=== PATIENT | male | born 1945 ===

== ENCOUNTER 2022-02-12 15:49 | Emergency (ER) | payer OTHER ==
[~2022-02-12] VITALS: Ht 162.6 cm; Wt 65.8 kg
[~2022-02-12 15:49] MED LIST: GLIMEPIRIDE4 MG; LOPRESSOR HCT 51 TAB; NEURONTIN800 MG; ZESTORETIC 20/21 TAB
== END 2022-02-12 21:50 | disposition home or self-care (01) ==
LOC: ER 15:49
DX: S81.021A Laceration with foreign body, right knee, initial encounter (principal); W25.XXXA Contact with sharp glass, initial encounter; Y93.89 Activity, other specified; Y92.010 Kitchen of single-family (private) house as the place of occurrence of the external cause

== ENCOUNTER 2022-09-02 07:09 | Outpatient (CLI) | payer OTHER | END 2022-09-02 07:10 | disposition home or self-care (01) | LOC: NUCLEAR 07:09 | DX: C61 Malignant neoplasm of prostate (principal) | CPT/HCPCS: 78306; A9503 ==

== ENCOUNTER 2023-06-27 14:19 | Emergency (ER) | payer OTHER ==
[~2023-06-27] VITALS: Ht 162.6 cm; Wt 63.5 kg
[2023-06-27] MEDS ORDERED: MOBIC7.5 MG PO (21:02)
[2023-06-27] MEDS ORDERED: PEPCID AC20 MG PO (21:02)
[2023-06-27] MEDS ORDERED: ZOFRAN8 MG PO (21:02)
== END 2023-06-27 21:41 | disposition home or self-care (01) ==
LOC: ER 14:19
DX: K52.9 Noninfective gastroenteritis and colitis, unspecified (principal); R07.89 Other chest pain; I11.9 Hypertensive heart disease without heart failure; M19.90 Unspecified osteoarthritis, unspecified site; Z85.46 Personal history of malignant neoplasm of prostate
CPT/HCPCS: 36415; 71045; 96365; 96366; 99284; J2405; J3490; J7042

== ENCOUNTER 2024-02-24 04:46 | Inpatient (IN) | payer OTHER ==
[~2024-02-24] VITALS: Ht 162.6 cm; Wt 65.8 kg
[~2024-02-24 04:46] MED LIST changes: +MOBIC7.5 MG PO; +PEPCID AC20 MG PO; +ZOFRAN8 MG PO
[2024-02-24] MEDS ORDERED: 0.9 % SODIUM CHLORIDE 1,000 ML IV STA (07:45)
[2024-02-24] MEDS ORDERED: ONDANSETRON HCL 2 MG/ML VIAL IV STA (07:46)
[2024-02-24] MEDS ORDERED: BISMUTH SUBSALICYLATE 524 MG/30 ML BLIST.PACK PO STA (07:46)
[2024-02-24] MEDS ORDERED: FAMOTIDINE/PF 20 MG/2 ML VIAL IV PUSH STA (07:46)
[2024-02-24] MEDS ORDERED: LOPERAMIDE HCL 2 MG CAPSULE PO STA (07:47)
[2024-02-24 08:30] LABS: HEMATOCRIT 28.2 % (39.0-48.0); MEAN CELL VOLUME 84.1 fL (80.0-100.00); MEAN CORPUSCULAR HGB CONC 32.8 g/dl (32.0-36.0); PLATELET COUNT 232 K/uL (150-450); RED BLOOD COUNT 3.36 M/uL (4.00-6.00); RED CELL DISTRIBUTION WIDTH 16.6 % (11.5-14.5)
[2024-02-24 08:40] LABS: HEMOGLOBIN 9.2 g/dL (13-16.00); MEAN CORPUSCULAR HEMOGLOBIN 27.3 pg (27.00-32.0)
[2024-02-24 08:53] LABS: ALBUMIN 3.6 gm/dL (3.4-5.0); BILIRUBIN TOTAL 0.52 mg/dL (0.3-1.2); CALCIUM 8.7 mg/dL (8.5-10.1); CREATININE SERUM 2.58 mg/dL (0.70-1.30); GFR 24.27; GLOBULINA 3.5 G/DL (2.4-3.5); POTASSIUM 5.75 mEq/L (3.5-5.1); TOTAL PROTEIN 7.1 gm/dL (6.4-8.2)
[2024-02-24] MEDS ORDERED: KETOROLAC TROMETHAMINE 30 MG VIAL IV ONE (15:30)
[2024-02-24] MEDS ORDERED: ACETAMINOPHEN 500 MG GEL..CAP PO PRN (17:15)
[2024-02-24] MEDS ORDERED: ONDANSETRON HCL 4 MG in 0.9 % SODIUM CHLORIDE 50 ML IV PRN (17:15)
[2024-02-24] MEDS ORDERED: 0.9 % SODIUM CHLORIDE 1,000 ML IV SCH (17:15)
[2024-02-24] MEDS ORDERED: DEXTROSE 50 % IN WATER 0.5 G/ML DISP.SYRIN IV PRN (17:30)
[2024-02-24] MEDS ORDERED: INSULIN LISPRO 1,000 UNIT/10 ML UNITS SUBCUTANEO PRN (17:30)
[2024-02-24] MEDS ORDERED: PIPERACILLIN/TAZOBACTAM SODIUM 2.25 GM in DEXTROSE 5 % IN WATER 50 ML IV SCH (18:00)
[2024-02-24 18:07] LABS: INR 1.11; PARTIAL THROMBOPLASTIN TIME 28.6 SECONDS (22.0-34.0); PROTHROMBIN TIME 11.6 SECONDS (9.0-11.5)
[2024-02-24 18:07] LABS: ABG PH 7.314 (7.35-7.45); ABG pCO2 33.1 mmHg (35-45); BASE EXCESS -8.6 mmol/l; BICARBONATE 16.4 mmol/l (23-25); SaO2 97.3 %; Tco2 17.4 mmol/l
[2024-02-24 18:08] LABS: allen test SATISFACTORY; o2 21 %; puncture site RADIAL RIGHT
[2024-02-24 18:09] LABS: CALCIUM 8.3 mg/dL (8.5-10.1); CREATININE SERUM 2.51 mg/dL (0.70-1.30); GFR 25.05; PHOSPHOROUS 4.7 mg/dL (2.5-4.9); POTASSIUM 5.5 mEq/L (3.5-5.1); URINE APPEARANCE Clear; URINE BILIRRUBIN Negative (NEGATIVE); URINE BLOOD Negative; URINE COLOR Yellow; URINE GLUCOSE Negative (NEGATIVE); URINE LEUKOCYTE Trace; URINE NITRATE Negative; URINE PROTEIN Trace (NEGATIVE); URINE UROBILINOGEN 0.2 E.U./dl
[2024-02-24 18:11] LABS: URINE BACTERIA 60.4 uL (0.0-1933); URINE EPITHELIAL CELLS 12.9 uL (0.0-38.8); URINE RBC 6.3 uL (0.0-20.8); URINE WBC 10.6 uL (0.0-23.2)
[2024-02-24 18:37] LABS: C-REACTIVE PROTEIN 6.27 MG/DL (0.00-0.29)
[2024-02-24] MEDS ORDERED: CITRIC ACID/SODIUM CITRATE 30 ML BLIST.PACK PO SCH (21:45)
[2024-02-25 08:24] LABS: BILIRUBIN TOTAL 0.43 mg/dL (0.3-1.2); CREATININE SERUM 2.13 mg/dL (0.70-1.30); GFR 30.28; GLOBULINA 2.9 G/DL (2.4-3.5); POTASSIUM 4.97 mEq/L (3.5-5.1); TOTAL PROTEIN 5.9 gm/dL (6.4-8.2); TSH 0.767 uIU/mL (0.358-3.74)
[2024-02-25] MEDS ORDERED: PANTOPRAZOLE SODIUM 40 MG/VIAL VIAL IV SCH (09:00)
[2024-02-25] MEDS ORDERED: ATORVASTATIN CALCIUM 40 MG TABLET PO SCH (09:00)
[2024-02-25] MEDS ORDERED: SODIUM POLYSTYRENE SULFONATE 15 G/4 TSP TSP PO SCH (09:00)
[2024-02-25] MEDS ORDERED: ENOXAPARIN SODIUM 30 MG/0.3 ML SYRINGE SUBCUTANEO SCH (09:00)
[2024-02-25] MEDS ORDERED: IRON FUM,PS/FOLIC/BCOMP,C NO.9 1 CAP CAPSULE PO SCH (09:00)
[2024-02-26 08:18] LABS: CALCIUM 8.1 mg/dL (8.5-10.1); CREATININE SERUM 1.5 mg/dL (0.70-1.30); GFR 45.38; POTASSIUM 4.76 mEq/L (3.5-5.1)
[2024-02-27 08:23] LABS: HEMATOCRIT 25.8 % (39.0-48.0); MEAN CELL VOLUME 83.4 fL (80.0-100.00); MEAN CORPUSCULAR HGB CONC 32.8 g/dl (32.0-36.0); PLATELET COUNT 226 K/uL (150-450); RED BLOOD COUNT 3.09 M/uL (4.00-6.00); RED CELL DISTRIBUTION WIDTH 16.1 % (11.5-14.5)
[2024-02-27 08:24] LABS: HEMOGLOBIN 8.5 g/dL (13-16.00); MEAN CORPUSCULAR HEMOGLOBIN 27.5 pg (27.00-32.0)
[2024-02-27 08:57] LABS: CALCIUM 8.6 mg/dL (8.5-10.1); CREATININE SERUM 1.28 mg/dL (0.70-1.30); GFR 54.49; POTASSIUM 4.55 mEq/L (3.5-5.1)
== END 2024-02-27 19:56 | disposition home or self-care (01) | DRG 684 ==
LOC: ER 04:46 → MEDI 17:35
PROVIDERS: General Practice; Internal Medicine Endocrinology, Diabetes & Metabolism; Internal Medicine Nephrology; ADMIT Internal Medicine; ATTEND Internal Medicine
PROC: BW21ZZZ Computerized Tomography (CT Scan) of Abdomen and Pelvis (ICD-10-PCS; principal; 2024-02-24)
DX: N17.9 Acute kidney failure, unspecified (principal); E86.0 Dehydration; E87.8 Other disorders of electrolyte and fluid balance, not elsewhere classified; K52.9 Noninfective gastroenteritis and colitis, unspecified; E11.9 Type 2 diabetes mellitus without complications; Z79.4 Long term (current) use of insulin; I10 Essential (primary) hypertension; Z20.822 Contact with and (suspected) exposure to COVID-19; A05.9 Bacterial foodborne intoxication, unspecified